=== PATIENT | female | born 1975 | race Caucasian/White ===

== ENCOUNTER → 2017-02-09 | Outpatient (CLI) | payer MEDICAID | LOC: LAB 11:40 | PROVIDERS: ATTEND Nurse Practitioner Acute Care | DX: L29.8 Other pruritus (principal) | CPT/HCPCS: 87210 ==

== ENCOUNTER 2017-10-13 19:07 | Emergency (ER) | payer SELFPAY ==
[2017-10-13] MEDS ORDERED: IPRATROPIUM BROMIDE 0.02% NEB 0.5 MG/2.5 ML AMPUL NEB ONE (19:42)
[2017-10-13] MEDS ORDERED: ALBUTEROL SULFATE HFA (90 MCG/PUFF) 8 GM MDI (1 MDI/ER DISP) IH PRN (19:42)
[2017-10-13] MEDS ORDERED: ALBUTEROL SULFATE 0.083% NEB 2.5 MG/3 ML AMPUL NEB ONE ×2 (19:42→19:54)
[2017-10-13] MEDS ORDERED: PREDNISONE 20 MG TABLET PO ONE (19:43)
--- NOTE | 2017-10-13 19:48 | ER Document Report ---
ED General - General Chief Complaint: Cough Stated Complaint: COUGH Time Seen by Provider: 10/13/17 19:38 Notes: Patient presents with 1 week of cough congestion was treated with a Z-Vargas by walking clinic last week. Symptoms have continued so patient comes to ED for evaluation. Denies any recent fever, chills or CP. Patient is a daily smoker and continues to smoke. TRAVEL OUTSIDE OF THE [place] IN LAST 30 DAYS: No - Related Data Allergies/Adverse Reactions: Penicillins Allergy (Verified 10/13/17 19:09) Shortness of Breath Past Medical History - Social History Smoking Status: Current Every Day Smoker Chew tobacco use (# tins/day): No Frequency of alcohol use: None Drug Abuse: None Family History: Reviewed & Not Pertinent Patient has suicidal ideation: No Patient has homicidal ideation: No Pulmonary Medical History: Reports: Hx Asthma, Hx Bronchitis - pneumonia, Hx Pneumonia - 06/26/2011 Denies: Hx COPD, Hx Respiratory Failure, Hx Sleep Apnea, Hx Tuberculosis Renal/ Medical History: Denies: Hx Ovarian Cysts, Hx Peritoneal Dialysis, Hx Pelvic Inflammatory Disease Malignancy Medical History: Denies: Hx Breast Cancer, Hx Cervical Cancer, Hx Lung Cancer, Hx Ovarian Cancer GI Medical History: Denies: Hx Crohn's Disease, Hx Diverticulitis, Hx Gastroesophageal Reflux Disease, Hx Hiatal Hernia, Hx Irritable Bowel, Hx Liver Failure, Hx Pancreatitis, Hx Ulcer Musculoskeltal Medical History: Denies Hx Arthritis, Denies Hx Fibromyalgia, Denies Hx Muscular Dystrophy Psychiatric Medical History: Reports: Hx Depression Traumatic Medical History: Denies: Hx Fractures Past Surgical History: Reports: Hx Abdominal Surgery - exp. lap, hemrrhoid, Hx Tubal Ligation. Denies: Hx Appendectomy, Hx Bowel Surgery, Hx Section , Hx Cholecystectomy, Hx Colostomy, Hx Coronary Artery Bypass Graft, Hx Gastric Bypass Surgery, Hx Herniorrhaphy, Hx Hysterectomy, Hx Mastectomy, Hx Pacemaker, Hx Tonsillectomy - Immunizations Hx Diphtheria, Pertussis, Tetanus Vaccination: Yes - unknown Review of Systems - Review of Systems Constitutional: No symptoms reported EENT: No symptoms reported Cardiovascular: No symptoms reported Respiratory: See HPI Gastrointestinal: No symptoms reported Genitourinary: No symptoms reported Female Genitourinary: No symptoms reported Musculoskeletal: No symptoms reported Skin: No symptoms reported Hematologic/Lymphatic: No symptoms reported Neurological/Psychological: No symptoms reported Physical Exam - General General appearance: Appears well, Alert - HEENT Head: Normocephalic, Atraumatic Eyes: Normal Cornea: Normal - Respiratory Respiratory status: No respiratory distress Chest status: Nontender Chest palpation: Normal Notes: Good air movement bilaterally with no crackles but wheezing diffusely on auscultation - Cardiovascular Rhythm: Regular Heart sounds: Normal auscultation Murmur: No - Abdominal Inspection: Normal - Back Back: Normal Course - Re-evaluation Re-evalutation: 10/13/17 19:45 Well-appearing patient will perform x-ray to ensure no infiltrates or consolidations if normal will treat as bronchitis with steroids nebulizers in ED , with albuterol puffer for home and 5 day steriod pack. Smoking cessation discussed. 10/13/17 20:26 X-ray shows no acute abnormalities per radiologist ,will be discharged with plans previously discussed Discharge - Discharge Clinical Impression: Bronchitis Condition: Good Disposition: HOME, SELF-CARE Instructions: Bronchitis ([facility]) Additional Instructions: Please use albuterol puffer provided 4 puffs every 4 hours for the next 2 days while awake and then 2 puffs every 4 hours as needed thereafter. Please take all medications prescribed. Prescriptions: Prednisone [Deltasone 20 mg Tablet] 2 tab PO DAILY 5 Days #10 tablet Forms: Smoking Cessation Education
--- NOTE | 2017-10-13 20:03 | RADIOLOGY REPORT (SQ) ---
EXAM DESCRIPTION: CHEST 2 VIEWS COMPLETED DATE/TIME: 10/13/2017 7:53 pm REASON FOR STUDY: congestion COMPARISON: 2014. TECHNIQUE: Frontal and lateral radiographic views of the chest acquired. NUMBER OF VIEWS: Two view. LIMITATIONS: None. FINDINGS: LUNGS AND PLEURA: No opacities, masses or pneumothorax. No pleural effusion. MEDIASTINUM AND HILAR STRUCTURES: No masses or contour abnormalities. HEART AND VASCULAR STRUCTURES: Heart normal size. No evidence for failure. BONES: No acute findings. HARDWARE: None in the chest. OTHER: No other significant finding. IMPRESSION: NO SIGNIFICANT RADIOGRAPHIC FINDING IN THE CHEST. TECHNICAL DOCUMENTATION: JOB ID: [id number] [employer]- All Rights Reserved Reading location - IP/workstation name: [email or web address]
[2017-10-13 21:07] VITALS: BP 122/68
== END 2017-10-13 21:07 | disposition home or self-care (01) ==
LOC: ER 19:07
DX: J40 Bronchitis, not specified as acute or chronic (principal); F17.200 Nicotine dependence, unspecified, uncomplicated; Z88.0 Allergy status to penicillin; Z95.1 Presence of aortocoronary bypass graft
CPT/HCPCS: 94640 ×2; 99283; 71046; J7512; J3490 ×2

== ENCOUNTER 2017-10-20 16:53 | Inpatient (IN) | payer SELFPAY ==
[2017-10-20] MEDS ORDERED: IPRATROPIUM/ALBUTEROL 0.5-2.5 MG/3 ML AMPUL NEB ONE ×2 (17:53→19:16)
[2017-10-20] MEDS ORDERED: PREDNISONE 20 MG TABLET PO ONE (17:53)
--- NOTE | 2017-10-20 17:54 | ER Document Report ---
HPI - HPI Patient complains to provider of: Wheezing, cough Onset: Other - 2 weeks Onset/Duration: Persistent, Worse Pain Level: Denies Context: Patient presents complaining of two-week history of cough, wheezing and dyspnea. Patient was initially seen in urgent care and given a prescription for Zithromax when her symptoms first started 2 wks ago. Patient did not have any improvement and presented to the emergency department 1 week ago and had a chest x-ray performed. Patient was discharged home on prednisone and albuterol. Whenever patient finished her steroid medication yesterday her symptoms started to flare back up. Patient reports productive cough. Patient denies any fever. Associated Symptoms: Productive cough, Shortness of breath Exacerbated by: Movement, Walking Relieved by: Denies Similar symptoms previously: Yes Recently seen / treated by doctor: Yes - ROS ROS below otherwise negative: Yes Systems Reviewed and Negative: Yes All other systems reviewed and negative - CONSTITUTIONAL Constitutional: DENIES: Fever - NEURO Neurology: DENIES: Headache - RESPIRATORY Respiratory: REPORTS: Trouble Breathing, Coughing - GASTROINTESTINAL Gastrointestinal: DENIES: Patient vomiting - REPRODUCTIVE Reproductive: DENIES: : - MUSCULOSKELETAL Musculoskeletal: DENIES: Back Pain - DERM Skin Color: Normal Skin Problems: None Past Medical History - General Information source: Patient - Social History Smoking Status: Current Every Day Smoker - 1 pack per day 30 years Smoking Education Provided: Yes Frequency of alcohol use: None Drug Abuse: None 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 Lives with: Spouse/Significant other Family History: Reviewed & Not Pertinent Pulmonary Medical History: Reports: Hx Asthma, Hx Bronchitis - pneumonia, Hx Pneumonia - 06/26/2011 Denies: Hx Respiratory Failure, Hx Sleep Apnea, Hx Tuberculosis Renal/ Medical History: Denies: Hx Ovarian Cysts, Hx Peritoneal Dialysis, Hx Pelvic Inflammatory Disease Malignancy Medical History: Denies: Hx Breast Cancer, Hx Cervical Cancer, Hx Lung Cancer, Hx Ovarian Cancer Musculoskeltal Medical History: Denies Hx Arthritis, Denies Hx Fibromyalgia, Denies Hx Muscular Dystrophy Psychiatric Medical History: Reports: Hx Depression Traumatic Medical History: Denies: Hx Fractures Past Surgical History: Reports: Hx Abdominal Surgery - exp. lap, hemrrhoid, Hx Tubal Ligation. Denies: Hx Appendectomy, Hx Bowel Surgery, Hx Section , Hx Cholecystectomy, Hx Colostomy, Hx Coronary Artery Bypass Graft, Hx Gastric Bypass Surgery, Hx Herniorrhaphy, Hx Hysterectomy, Hx Mastectomy, Hx Pacemaker, Hx Tonsillectomy - Immunizations Hx Diphtheria, Pertussis, Tetanus Vaccination: Yes - unknown Vertical Provider Document - CONSTITUTIONAL Agree With Documented VS: Yes Exam Limitations: No Limitations General Appearance: WD/WN, No Apparent Distress - INFECTION CONTROL TRAVEL OUTSIDE OF THE [place] IN LAST 30 DAYS: No - HEENT HEENT: Atraumatic, Normal ENT Exam, Normocephalic - NECK Neck: Normal Inspection, Supple. negative: Lymphadenopathy-Left, Lymphadenopathy-Right - RESPIRATORY Respiratory: No Respiratory Distress, Rhonchi, Wheezing - CARDIOVASCULAR Cardiovascular: Regular Rate, Regular Rhythm, No Murmur - GI/ABDOMEN Gastrointestinal: Abdomen Soft - BACK Back: Normal Inspection - MUSCULOSKELETAL/EXTREMETIES Musculoskeletal/Extremeties: MAEW - NEURO Level of Consciousness: Awake, Alert, Appropriate Motor/Sensory: No Motor Deficit - DERM Integumentary: Warm, Dry, No Rash Course - Re-evaluation Re-evalutation: 10/20/17 19:16 Patient continues with wheezing bilaterally, patient with good air movement. Chest x-ray without any concern for pneumonia at this time. 10/20/17 19:40 Patient ambulated, saturation maintained between 90-92% patient's heart rate up to 112, pt reports exertional dyspnea. Additional medications ordered. 10/20/17 21:24 Patient sleeping, arouses easily to voice. Patient with only faint scattered wheezing, good air movement bilaterally. Patient states she feels as though she is breathing easier after medication. 10/20/17 22:10 Patient ambulated in giordano, heart rate 116, oxygen saturation continues at 90%. Consulted with Dr. Chakraborty who recommends consultation with hospitalist for admission. 10/20/17 22:[address] Fernandez who agrees to accept patient as a telemetry observation admission. - Vital Signs Vital signs: Temp Pulse Resp BP Pulse Ox 99.1 F 97 20 131/84 H 93 10/20/17 16:59 10/20/17 16:59 10/20/17 16:59 10/20/17 16:59 10/20/17 16:59 - Laboratory Result Diagrams: 10/20/17 20:40 10/20/17 20:40 Laboratory results interpreted by me: 10/20/17 22:24 Labs- Entire Visit 04/27/18 04/27/18 04/27/18 20:40 20:40 20:40 WBC 18.1 H RBC 4.73 Hgb 14.9 Hct 43.7 MCV 92 MCH 31.4 MCHC 34.1 RDW 13.6 Plt Count 277 Seg Neutrophils % 85.2 H Lymphocytes % 7.4 L Monocytes % 4.1 Eosinophils % 2.8 Basophils % 0.5 Absolute Neutrophils 15.4 H Absolute Lymphocytes 1.3 Absolute Monocytes 0.7 Absolute Eosinophils 0.5 Absolute Basophils 0.1 Carbonic Acid 1.10 HCO3/H2CO3 Ratio 22:1 ABG pH 7.45 ABG pCO2 36.7 ABG pO2 52.4 L ABG HCO3 24.7 ABG Total CO2 25.8 H ABG O2 Saturation 88.7 L ABG Base Excess 1.0 FiO2 ROOM AIR Sodium 142.5 Potassium 4.0 Chloride 104 Carbon Dioxide 26 Anion Gap 13 BUN 8 Creatinine 0.62 Est GFR ( Amer) > 60 Est GFR (Non-Af Amer) > 60 Glucose 128 H Calcium 8.8 Magnesium 2.0 - Diagnostic Test Radiology reviewed: Reports reviewed - Reviewed x-ray from previous ER visit Discharge - Discharge Clinical Impression: Asthma exacerbation with COPD (chronic obstructive pulmonary disease), Bronchitis, Tobacco abuse Condition: Stable Disposition: ADMITTED OBSERVATION Admitting Provider: Hospitalist Unit Admitted: Telemetry
[2017-10-20] MEDS: ALBUTEROL SULFATE 0.083% NEB 2.5 MG/3 ML AMPUL NEB SCH ×2 (18:02→18:45)
--- NOTE | 2017-10-20 18:37 | RADIOLOGY REPORT (SQ) ---
EXAM DESCRIPTION: CHEST 2 VIEWS COMPLETED DATE/TIME: 10/20/2017 6:28 pm REASON FOR STUDY: cough COMPARISON: 10/13/2017 EXAM PARAMETERS: NUMBER OF VIEWS: two views TECHNIQUE: Digital Frontal and Lateral radiographic views of the chest acquired. RADIATION DOSE: NA LIMITATIONS: none FINDINGS: LUNGS AND PLEURA: No new opacities, masses or pneumothorax. No pleural effusion. MEDIASTINUM AND HILAR STRUCTURES: No masses or contour abnormalities. HEART AND VASCULAR STRUCTURES: Heart stable in size. No evidence for failure. BONES: No acute findings. HARDWARE: None in the chest. OTHER: No other significant finding. IMPRESSION: NO ACUTE RADIOGRAPHIC FINDING IN THE CHEST. NO SIGNIFICANT CHANGE FROM PRIOR STUDY TECHNICAL DOCUMENTATION: JOB ID: [id number] [employer]- All Rights Reserved Reading location - IP/workstation name: [email or web address]
[2017-10-20] MEDS: MAGNESIUM SULFATE/D5W 1 GM/100 ML RTUPB IV SCH ×2 (20:47→20:48)
[2017-10-20 21:06] LABS: ABSOLUTE BASOPHILS # (AUTO) 0.1 10^3/uL (0.0-0.2); ABSOLUTE EOSINOPHILS # (AUTO) 0.5 10^3/uL (0.0-0.6); ABSOLUTE LYMPHOCYTES (AUTO) 1.3 10^3/uL (0.5-4.7); ABSOLUTE MONOCYTES (AUTO) 0.7 10^3/uL (0.1-1.4); ABSOLUTE NEUT (AUTO) 15.4 10^3/uL (1.7-8.2); BASOPHILS % (AUTO) 0.5 % (0-2); EOSINOPHILS % (AUTO) 2.8 % (0-6); HEMATOCRIT 43.7 % (36.0-47.0); HEMOGLOBIN 14.9 g/dL (12.0-15.5); LYMPHOCYTES % (AUTO) 7.4 % (13-45); MEAN CORPUSCULAR HEMOGLOBIN 31.4 pg (27.0-33.4); MEAN CORPUSCULAR HGB CONC 34.1 g/dL (32.0-36.0); MEAN CORPUSCULAR VOLUME 92 fl (80-97); MONOCYTES % (AUTO) 4.1 % (3-13); PLATELET COUNT 277 10^3/uL (150-450); RED BLOOD COUNT 4.73 10^6/uL (3.72-5.28); RED CELL DISTRIBUTION WIDTH 13.6 % (11.5-14.0); SEGMENTED NEUTROPHILS % (AUTO) 85.2 % (42-78); TOTAL CELLS COUNTED % (AUTO) 100 %; WHITE BLOOD COUNT 18.1 10^3/uL (4.0-10.5)
[2017-10-20 21:10] LABS: ARTERIAL BLOOD HCO3 24.7 mmol/L (20-26); ARTERIAL BLOOD O2 SATURATION 88.7 % (94-98); ARTERIAL BLOOD PCO2 36.7 mmHg (35-45); ARTERIAL BLOOD PH 7.45 (7.35-7.45); ARTERIAL BLOOD PO2 52.4 mmHg (80-100); ARTERIAL BLOOD TOTAL CO2 25.8 mmol/L (21-25)
[2017-10-20 21:14] LABS: ARTERIAL BLOOD FIO2 ROOM AIR
[2017-10-20 21:32] LABS: ANION GAP 13 (5-19); BLOOD UREA NITROGEN 8 mg/dL (7-20); CALCIUM 8.8 mg/dL (8.4-10.2); CARBON DIOXIDE 26 mmol/L (22-30); CHLORIDE 104 mmol/L (98-107); GLUCOSE 128 mg/dL (75-110); SODIUM 142.5 mmol/L (137-145)
[2017-10-20] MEDS ORDERED: GUAIFENESIN SYRP 200 MG/10 ML UDC PO PRN (22:20)
[2017-10-20] MEDS ORDERED: HYDRALAZINE HCL INJ/PF 20 MG/1 ML SDV IV PRN (22:20)
[2017-10-20] MEDS ORDERED: ACETAMINOPHEN 325 MG TABLET PO PRN (22:20)
[2017-10-20] MEDS ORDERED: IPRATROPIUM/ALBUTEROL 0.5-2.5 MG/3 ML AMPUL NEB PRN (22:20)
[2017-10-20] MEDS ORDERED: CHLORPHENIRAMINE MALEATE 4 MG TABLET PO ONE (22:20)
[2017-10-20] MEDS ORDERED: DOXYCYCLINE HYCLATE INJ 100 MG VIAL IV ONE (22:21)
[2017-10-20] MEDS ORDERED: NICOTINE 14 MG/24 HR PATCH.TD24 TD ONE (22:33)
[2017-10-20] MEDS ORDERED: FLUTICASONE NASAL SPRAY 50 MCG/SPRY 120 SPRAY/16 GM NASL ONE (22:45)
[2017-10-20] MEDS ORDERED: LEVOFLOXACIN 750 MG/D5W RTU 750 MG/150 ML RTUPB IV ONE (23:00)
[2017-10-20 23:15] LABS: CREATINE KINASE MB 1.17 ng/mL (<4.55); NT PRO BNP 85 pg/mL (<125); TROPONIN I < 0.012 ng/mL
[2017-10-21] MEDS: IPRATROPIUM/ALBUTEROL 0.5-2.5 MG/3 ML AMPUL NEB SCH ×4 (02:17→19:44)
[2017-10-21] MEDS ORDERED: IPRATROPIUM/ALBUTEROL 0.5-2.5 MG/3 ML AMPUL NEB ONE (02:18)
--- NOTE | 2017-10-21 05:51 | PDOC H&P ---
History of Present Illness Admission Date/PCP: 10/20/17 22:33 JENNA ZAMORA MD Patient complains of: Shortness of breath and nonproductive cough History of Present Illness: NUNO HARRIS is a 42 year old female with a past medical history of endometriosis, chronic bronchitis, COPD and ongoing tobacco dependence. Patient presents with 2 weeks of shortness of breath which was treated with prednisone and improved until prednisone prescription completed. Patient states her symptoms worse at night with some postnasal drip denying GERD. In the emergency room she is found to have leukocytosis of 18,000 and oxygen saturation of 90% on room air, wheeze and cough. She started on prednisone albuterol and Atrovent and referred to the hospitalist. Past Medical History Cardiac Medical History: Reports: None Pulmonary Medical History: Reports: Asthma, Bronchitis - pneumonia, Pneumonia - 06/26/2011 Denies: Chronic Obstructive Pulmonary Disease (COPD), Respiratory Failure, Sleep Apnea, Tuberculosis EENT Medical History: Reports: None Neurological Medical History: Reports: None Endocrine Medical History: Reports: None Renal/ Medical History: Reports: None Malignancy Medical History: Reports: None Denies: Breast Cancer, Cervical Cancer, Lung Cancer, Ovarian Cancer GI Medical History: Reports: None Denies: Crohn's Disease, Diverticulitis, Gastroesophageal Reflux Disease, Hiatal Hernia Musculoskeltal Medical History: Reports: None Denies: Arthritis, Fibromyalgia Skin Medical History: Reports: None Psychiatric Medical History: Reports: Depression, Tobacco Dependency Traumatic Medical History: Reports: None Hematology: Reports: None Infectious Medical History: Reports: None Past Surgical History Past Surgical History: Reports: Tubal Ligation Denies: Amputation, Appendectomy, Section, Cholecystectomy, Colostomy, Coronary Artery Bypass Graft, Gastric Bypass Surgery, Herniorrhaphy, Hysterectomy, Mastectomy, Pacemaker, Tonsillectomy Social History Information Source: Patient Lives with: Spouse/Significant other Smoking Status: Current Every Day Smoker Cigarettes Packs Per Day: 1 Number of Years Smokin Frequency of Alcohol Use: Occasional Hx Recreational Drug Use: No Drugs: None Hx Prescription Drug Abuse: No - Advance Directive Resuscitation Status: Full Code Family History Family History: COPD, DM Parental Family History Reviewed: Yes Children Family History Reviewed: Yes Sibling(s) Family History Reviewed.: Yes Medication/Allergy Home Medications: Albuterol Sulfate [Ventolin 0.083% Neb 2.5 mg/3 mL Ampul] 2.5 mg NEB RTQ4HP PRN #30 vial.neb 03/04/15 Benzonatate [Tessalon Perles 100 mg Capsule] 100 mg PO Q8HP PRN #30 capsule 03/10 Budesonide [Pulmicort Neb 0.5 mg/2 ml Ampul] 0.5 mg NEB RTQ12 #30 ampul.neb 03/10 Levofloxacin [Levaquin 750 mg Tablet] 750 mg PO QPM #5 tablet 03/04/15 Prednisone 20 mg PO ASDIR PRN #16 tablet 03/04/15 Tiotropium [place] [Spiriva Handihaler 5 Cap/Kit (18 Mcg/Cap)] 1 cap IH DAILY # 30 kit 03/04/15 Prednisone [Deltasone 20 mg Tablet] 2 tab PO DAILY 5 Days #10 tablet 10/13/17 Allergies/Adverse Reactions: Penicillins Allergy (Verified 10/20/17 16:54) Shortness of Breath Review of Systems Constitutional: ABSENT: chills, fever(s), headache(s), weight gain, weight loss Eyes: ABSENT: visual disturbances Ears: ABSENT: hearing changes Cardiovascular: ABSENT: chest pain, dyspnea on exertion, edema, orthropnea, palpitations Respiratory: ABSENT: cough, hemoptysis Gastrointestinal: ABSENT: abdominal pain, constipation, diarrhea, hematemesis, hematochezia, nausea, vomiting Genitourinary: ABSENT: dysuria, hematuria Musculoskeletal: ABSENT: joint swelling Integumentary: ABSENT: rash, wounds Neurological: ABSENT: abnormal gait, abnormal speech, confusion, dizziness, focal weakness, syncope Psychiatric: ABSENT: anxiety, depression, homidical ideation, suicidal ideation Endocrine: ABSENT: cold intolerance, heat intolerance, polydipsia, polyuria Hematologic/Lymphatic: ABSENT: easy bleeding, easy bruising Physical Exam Vital Signs: Temp Pulse Resp BP Pulse Ox 98.9 F 112 H 17 111/88 H 96 10/21/17 01:59 10/21/17 02:41 10/21/17 02:17 10/21/17 01:59 10/21/17 03:41 Pulse Oximeter Continuous Start: 10/20/17 22: 20 Freq: RTQ4 Status: Active Document 10/21/17 03:41 EAL (Rec: 10/21/17 03:42 EAL [email or web address]) Pulse Oximetry Assessment Oxygen Saturation (92-100) 96 Oxygen Flow Rate (L/min) 2 Oxygen Delivery Method Nasal Cannula Fraction of Inspired Oxygen (FIO2) 28 Equipment Usage Equipment Standby Continuous SpO2 Machine # XX Additional RT Notes Other COPOX unavailable at this time . Nurse notified. Intake & Output 10/19/17 10/20/17 10/21/17 11:59 11:59 11:59 Intake Total 2 Balance 2 General appearance: PRESENT: cooperative, mild distress, obese Head exam: PRESENT: atraumatic, normocephalic Eye exam: PRESENT: conjunctiva pink, EOMI, PERRLA. ABSENT: scleral icterus Ear exam: PRESENT: normal external ear exam Mouth exam: PRESENT: moist, tongue midline Neck exam: ABSENT: carotid bruit, JVD, lymphadenopathy, thyromegaly Respiratory exam: PRESENT: accessory muscle use, crackles, prolonged expiratory phas, rales, retraction, symmetrical, tachypnea. ABSENT: rhonchi, stridor Cardiovascular exam: PRESENT: RRR. ABSENT: diastolic murmur, rubs, systolic murmur Pulses: PRESENT: normal dorsalis pedis pul Vascular exam: PRESENT: normal capillary refill GI/Abdominal exam: PRESENT: normal bowel sounds, soft. ABSENT: distended, guarding, mass, organolmegaly, rebound, tenderness Rectal exam: PRESENT: deferred Extremities exam: PRESENT: full ROM. ABSENT: calf tenderness, clubbing, pedal edema Neurological exam: PRESENT: alert, awake, oriented to person, oriented to place , oriented to time, oriented to situation, CN II-XII grossly intact. ABSENT: motor sensory deficit Psychiatric exam: PRESENT: appropriate affect, normal mood. ABSENT: homicidal ideation, suicidal ideation Skin exam: PRESENT: dry, intact, warm. ABSENT: cyanosis, rash Results Impressions: Chest X-Ray 10/20/17 17:54 IMPRESSION: NO ACUTE RADIOGRAPHIC FINDING IN THE CHEST. NO SIGNIFICANT CHANGE FROM PRIOR STUDY Assessment & Plan - Diagnosis (1) Acute exacerbation of chronic obstructive pulmonary disease (COPD) Is this a current diagnosis for this admission?: Yes Plan: Telemetry, albuterol and Atrovent, flutter valve, incentive spirometry. Supplemental oxygen (2) Acute exacerbation of chronic bronchitis Is this a current diagnosis for this admission?: Yes Plan: Prednisone, empiric antibiotic, flutter valve (3) GERD (gastroesophageal reflux disease) Is this a current diagnosis for this admission?: Yes Plan: Trial proton pump inhibitor. (4) Tobacco abuse Is this a current diagnosis for this admission?: Yes Plan: Tobacco Dependence patient received tobacco cessation counseling and offered nicotine replacement options - Time Time Spent: 30 to 50 Minutes
[2017-10-21] MEDS ORDERED: METHYLPREDNISOLONE INJ 125 MG/2 ML SDV IV SCH (06:00)
[2017-10-21] MEDS: HEPARIN SOD (PORCINE) 5,000 UNIT/ML 1 ML SYRINGE SUBCUT SCH ×3 (06:15→21:56)
[2017-10-21] MEDS: LANSOPRAZOLE 30 MG TAB.RAP.DR PO SCH ×2 (06:15→17:57)
[2017-10-21] MEDS ORDERED: PREDNISONE 20 MG TABLET PO ONE (06:15)
[2017-10-21 06:48] LABS: ABSOLUTE BASOPHILS # (AUTO) 0.1 10^3/uL (0.0-0.2); ABSOLUTE EOSINOPHILS # (AUTO) 0.1 10^3/uL (0.0-0.6); ABSOLUTE LYMPHOCYTES (AUTO) 1.7 10^3/uL (0.5-4.7); ABSOLUTE MONOCYTES (AUTO) 1.2 10^3/uL (0.1-1.4); ABSOLUTE NEUT (AUTO) 13.1 10^3/uL (1.7-8.2); BASOPHILS % (AUTO) 0.5 % (0-2); EOSINOPHILS % (AUTO) 0.8 % (0-6); HEMATOCRIT 43.3 % (36.0-47.0); HEMOGLOBIN 14.7 g/dL (12.0-15.5); LYMPHOCYTES % (AUTO) 10.7 % (13-45); MEAN CORPUSCULAR HEMOGLOBIN 31.6 pg (27.0-33.4); MEAN CORPUSCULAR VOLUME 93 fl (80-97); MONOCYTES % (AUTO) 7.6 % (3-13); PLATELET COUNT 259 10^3/uL (150-450); RED BLOOD COUNT 4.66 10^6/uL (3.72-5.28); RED CELL DISTRIBUTION WIDTH 13.4 % (11.5-14.0); SEGMENTED NEUTROPHILS % (AUTO) 80.4 % (42-78); TOTAL CELLS COUNTED % (AUTO) 100 %; WHITE BLOOD COUNT 16.3 10^3/uL (4.0-10.5)
[2017-10-21 07:13] LABS: ANION GAP 8 (5-19); BLOOD UREA NITROGEN 10 mg/dL (7-20); CALCIUM 9.2 mg/dL (8.4-10.2); CARBON DIOXIDE 28 mmol/L (22-30); CHLORIDE 105 mmol/L (98-107); GLUCOSE 100 mg/dL (75-110); POTASSIUM 4.3 mmol/L (3.6-5.0); SODIUM 140.7 mmol/L (137-145)
[2017-10-21] MEDS: FLUTICASONE NASAL SPRAY 50 MCG/SPRY 120 SPRAY/16 GM NASL SCH ×2 (09:41→21:54)
--- NOTE | 2017-10-21 13:32 | PDOC PROGRESS REPORT ---
Subjective Progress Note for:: 10/21/17 Subjective:: No new complaints. Feels about the same. Reason For Visit: COPD EXACERBATION ACUTE ON CHRONIC BRONCHITIS Physical Exam Vital Signs: Temp Pulse Resp BP Pulse Ox 98.5 F 102 H 14 133/77 H 94 10/21/17 12:32 10/21/17 12:32 10/21/17 12:32 10/21/17 12:32 10/21/17 12:32 Pulse Oximeter Continuous Start: 10/20/17 22: 20 Freq: RTQ4 Status: Active Document 10/21/17 11:39 TPO (Rec: 10/21/17 11:40 TPO [email or web address]) Pulse Oximetry Assessment Oxygen Saturation (92-100) 91 Oxygen Flow Rate (L/min) 2 Oxygen Delivery Method Nasal Cannula Fraction of Inspired Oxygen (FIO2) 28 Equipment Usage Initial Set Up Continuous Pulse Oximeter 24 Hour Charge Charge Now Continuous SpO2 Machine # N-1 Intake & Output 10/20/17 10/21/17 10/22/17 06:59 06:59 06:59 Intake Total 2 Output Total 0 Balance 2 Weight 197 lb 1.492 oz General appearance: PRESENT: no acute distress, obese Respiratory exam: PRESENT: clear to auscultation kimberlyn, decreased breath sounds, prolonged expiratory phas Cardiovascular exam: PRESENT: RRR GI/Abdominal exam: PRESENT: soft Extremities exam: PRESENT: other - No edema Neurological exam: PRESENT: alert Psychiatric exam: PRESENT: appropriate affect Skin exam: PRESENT: dry, warm Results Laboratory Results: 10/21/17 05:35 10/21/17 05:35 10/21/17 10/21/17 05:35 05:35 WBC 16.3 H RBC 4.66 Hgb 14.7 Hct 43.3 MCV 93 MCH 31.6 MCHC 34.0 RDW 13.4 Plt Count 259 Seg Neutrophils % 80.4 H Lymphocytes % 10.7 L Monocytes % 7.6 Eosinophils % 0.8 Basophils % 0.5 Absolute Neutrophils 13.1 H Absolute Lymphocytes 1.7 Absolute Monocytes 1.2 Absolute Eosinophils 0.1 Absolute Basophils 0.1 Sodium 140.7 Potassium 4.3 Chloride 105 Carbon Dioxide 28 Anion Gap 8 BUN 10 Creatinine 0.59 Est GFR ( Amer) > 60 Est GFR (Non-Af Amer) > 60 Glucose 100 Calcium 9.2 Impressions: Chest X-Ray 10/20/17 17:54 IMPRESSION: NO ACUTE RADIOGRAPHIC FINDING IN THE CHEST. NO SIGNIFICANT CHANGE FROM PRIOR STUDY Assessment & Plan - Diagnosis (1) Acute exacerbation of chronic obstructive pulmonary disease (COPD) Is this a current diagnosis for this admission?: Yes Plan: Steroids, nebulizers, Levaquin, wean oxygen as tolerated. (2) Obesity Qualifiers: Obesity type: due to excess calories Is this a current diagnosis for this admission?: Yes (3) Tobacco abuse Is this a current diagnosis for this admission?: Yes Plan: Strongly encouraged cessation
[2017-10-21] MEDS: PREDNISONE 20 MG TABLET PO SCH (17:58)
[2017-10-21] MEDS: LEVOFLOXACIN 500 MG TABLET PO SCH (21:54)
[2017-10-21] MEDS ORDERED: LEVOFLOXACIN 750 MG/D5W RTU 750 MG/150 ML RTUPB IV SCH (22:00)
[2017-10-22] MEDS: IPRATROPIUM/ALBUTEROL 0.5-2.5 MG/3 ML AMPUL NEB SCH ×4 (02:04→20:12)
[2017-10-22] MEDS: HEPARIN SOD (PORCINE) 5,000 UNIT/ML 1 ML SYRINGE SUBCUT SCH ×3 (06:08→21:42)
[2017-10-22] MEDS: LANSOPRAZOLE 30 MG TAB.RAP.DR PO SCH ×2 (06:08→17:20)
[2017-10-22] MEDS: FLUTICASONE NASAL SPRAY 50 MCG/SPRY 120 SPRAY/16 GM NASL SCH ×2 (09:50→21:42)
[2017-10-22] MEDS: PREDNISONE 20 MG TABLET PO SCH ×2 (09:50→17:20)
[2017-10-22] MEDS ORDERED: LEVOFLOXACIN 500 MG TABLET PO SCH (10:00)
[2017-10-22] MEDS ORDERED: TEMAZEPAM 15 MG CAPSULE PO PRN (12:04)
--- NOTE | 2017-10-22 12:07 | PDOC PROGRESS REPORT ---
Subjective Progress Note for:: 10/22/17 Subjective:: Feels like she is starting to get a little better. Unable to sleep at night. Reason For Visit: COPD EXACERBATION ACUTE ON CHRONIC BRONCHITIS Physical Exam Vital Signs: Temp Pulse Resp BP Pulse Ox 98.2 F 97 20 118/68 91 L 10/22/17 09:00 10/22/17 09:00 10/22/17 09:00 10/22/17 09:00 10/22/17 09:00 Pulse Oximeter Continuous Start: 10/20/17 22: 20 Freq: RTQ4 Status: Complete Document 10/22/17 08:18 TPO (Rec: 10/22/17 08:32 TPO [email or web address]) Pulse Oximetry Assessment Oxygen Saturation (92-100) 96 Oxygen Flow Rate (L/min) 2 Oxygen Delivery Method Nasal Cannula Fraction of Inspired Oxygen (FIO2) 28 Equipment Usage Equipment in Use Continuous SpO2 Machine # 1 Intake & Output 10/21/17 10/22/17 10/23/17 06:59 06:59 06:59 Intake Total 2 2568 Output Total 0 Balance 2 2568 Weight 197 lb 1.492 oz 209 lb 14.081 oz General appearance: PRESENT: no acute distress, obese Respiratory exam: PRESENT: clear to auscultation kimberlyn, decreased breath sounds, prolonged expiratory phas Cardiovascular exam: PRESENT: RRR GI/Abdominal exam: PRESENT: soft Extremities exam: ABSENT: other - No edema Musculoskeletal exam: PRESENT: normal inspection Neurological exam: PRESENT: alert Psychiatric exam: PRESENT: appropriate affect Skin exam: PRESENT: warm Results Laboratory Results: 10/21/17 05:35 10/21/17 05:35 Impressions: Chest X-Ray 10/20/17 17:54 IMPRESSION: NO ACUTE RADIOGRAPHIC FINDING IN THE CHEST. NO SIGNIFICANT CHANGE FROM PRIOR STUDY Assessment & Plan - Diagnosis (1) Acute exacerbation of chronic obstructive pulmonary disease (COPD) Is this a current diagnosis for this admission?: Yes Plan: Steroids, nebulizers, Levaquin, wean oxygen as tolerated. (2) Obesity Qualifiers: Obesity type: due to excess calories Is this a current diagnosis for this admission?: Yes (3) Tobacco abuse Is this a current diagnosis for this admission?: Yes Plan: Strongly encouraged cessation. Nicotine replacement
[2017-10-22] MEDS: LEVOFLOXACIN 500 MG TABLET PO SCH (21:42)
[2017-10-22] MEDS ORDERED: TEMAZEPAM 15 MG CAPSULE PO SCH (22:00)
[2017-10-23] MEDS: IPRATROPIUM/ALBUTEROL 0.5-2.5 MG/3 ML AMPUL NEB SCH ×2 (01:44→08:04)
[2017-10-23] MEDS: LANSOPRAZOLE 30 MG TAB.RAP.DR PO SCH (05:55)
[2017-10-23] MEDS: HEPARIN SOD (PORCINE) 5,000 UNIT/ML 1 ML SYRINGE SUBCUT SCH (05:56)
[2017-10-23] MEDS: PREDNISONE 20 MG TABLET PO SCH (09:00)
[2017-10-23] MEDS: FLUTICASONE NASAL SPRAY 50 MCG/SPRY 120 SPRAY/16 GM NASL SCH (09:02)
[2017-10-23 11:51] VITALS: BP 120/88
--- NOTE | 2017-10-23 14:50 | PDOC DISCHARGE SUMMARY ---
General - Admit/Disc Date/PCP Admission Date/Primary Care Provider: 10/22/17 12:29 Discharge Date: 10/23/17 - Discharge Diagnosis (1) Acute exacerbation of chronic obstructive pulmonary disease (COPD) Is this a current diagnosis for this admission?: Yes Summary: Treated with steroids, nebulizers, empiric antibiotics, as slowly improved, now on room air saturating 94% so I think she can go home. (2) Obesity Is this a current diagnosis for this admission?: Yes (3) Tobacco abuse Is this a current diagnosis for this admission?: Yes Summary: Strongly counseled to cease (4) VITO (obstructive sleep apnea) Is this a current diagnosis for this admission?: Yes Summary: Presumptive. She has been noted to desaturate at night and to snore quite loudly. I recommended that she follow-up with Dr. oCates for sleep study. - Additional Information Resuscitation Status: Full Code Discharge Diet: Regular Discharge Activity: Activity As Tolerated Prescriptions: Fluticasone/Salmeterol [Advair 500-50 Diskus 28 Dose] 1 inh IH Q12H #1 inhaler Prednisone [Deltasone 20 mg Tablet] 20 mg PO BID #10 tablet Tiotropium Drake [Spiriva] 18 mcg IH DAILY #1 cap.w.dev Home Medications: Fluticasone Propionate [Flonase Nasal [place] 50 Mcg/[place] 16 gm] 2 spray NASL Q12 spray.pump 10/23/17 Fluticasone/Salmeterol [Advair 500-50 Diskus 28 Dose] 1 inh IH Q12H #1 inhaler 10/23/17 Prednisone [Deltasone 20 mg Tablet] 20 mg PO BID #10 tablet 10/23/17 Tiotropium Drake [Spiriva] 18 mcg IH DAILY #1 cap.w.dev 10/23/17 History of Present Illness Patient complains of: Short of breath History of Present Illness: NUNO HARRIS is a 42 year old female with a past medical history of endometriosis, chronic bronchitis, COPD and ongoing tobacco dependence. Patient presents with 2 weeks of shortness of breath which was treated with prednisone and improved until prednisone prescription completed. Patient states her symptoms worse at night with some postnasal drip denying GERD. In the emergency room she is found to have leukocytosis of 18,000 and oxygen saturation of 90% on room air, wheeze and cough. She started on prednisone albuterol and Atrovent and referred to the hospitalist. Hospital Course Hospital Course: She was treated with steroids nebulizers and antibiotics. Has made good progress and so will be discharged Physical Exam Vital Signs: Temp Pulse Resp BP Pulse Ox 98.3 F 86 16 120/88 H 94 10/23/17 11:50 10/23/17 11:50 10/23/17 11:50 10/23/17 11:50 10/23/17 11:50 Intake & Output 10/22/17 10/23/17 10/24/17 06:59 06:59 06:59 Intake Total 1953 Balance 1953 Weight 204 lb 2.369 oz General appearance: PRESENT: no acute distress, obese Respiratory exam: PRESENT: clear to auscultation [place], decreased breath sounds, prolonged expiratory phas Cardiovascular exam: PRESENT: RRR GI/Abdominal exam: PRESENT: soft Neurological exam: PRESENT: alert Psychiatric exam: PRESENT: appropriate affect Skin exam: PRESENT: warm Results Impressions: Chest X-Ray 10/20/17 17:54 IMPRESSION: NO ACUTE RADIOGRAPHIC FINDING IN THE CHEST. NO SIGNIFICANT CHANGE FROM PRIOR STUDY Qualifiers - * PATIENT BEING DISCHARGED WITH ANY OF THE FOLLOWING DIAGNOSIS: No
== END 2017-10-23 12:51 | disposition home or self-care (01) | DRG 192 ==
LOC: ER 16:53 → EH 22:33 → 4W 10-21 02:31 → OBSVTOIN 10-22 12:29
PROVIDERS: ADMIT Internal Medicine; ATTEND Internal Medicine
PROC: 3E0F73Z Introduction of Anti-inflammatory into Respiratory Tract, Via Natural or Artificial Opening (ICD-10-PCS; principal; 2017-10-21)
DX: J44.1 Chronic obstructive pulmonary disease with (acute) exacerbation (principal); Z68.33 Body mass index [BMI] 33.0-33.9, adult; G47.33 Obstructive sleep apnea (adult) (pediatric); F32.9 Major depressive disorder, single episode, unspecified; K21.9 Gastro-esophageal reflux disease without esophagitis; F17.210 Nicotine dependence, cigarettes, uncomplicated; J44.0 Chronic obstructive pulmonary disease with (acute) lower respiratory infection; J20.9 Acute bronchitis, unspecified; E66.09 Other obesity due to excess calories; Z88.0 Allergy status to penicillin; Z79.899 Other long term (current) drug therapy; Z83.3 Family history of diabetes mellitus; Z82.49 Family history of ischemic heart disease and other diseases of the circulatory system
CPT/HCPCS: 36415; 71046; 80048; 82550; 82553; 82803; 83735; 83880; 84484; 85025; 87040; 94640; 94667; 94668; 94762; 94799; 96365; 96367; 99285; G0378; J1644; J1956; J3475; J3490; J7512; J7620